=== PATIENT | male | born 1990 | race Caucasian/White ===

== ENCOUNTER 2016-10-09 06:29 | Inpatient (IN) | payer BC ==
--- NOTE | ~2016-10-09 | CN ---
Consultation Report [facility] [address] [place]. [address] NAME: YUE KEVIN : 88 STATUS : ADM IN PAT#: [id number] AGE: 25 ADM/REG DATE : 10/09/16 MR#: [id number] REPORT SERV DATE: 10/10/16 DICTATED BY: WOOD KENNEDY DATE: 10/09/16 REPORT STATUS : Draft TRANSCRIBED BY: MODL DATE: 10/09/16 PAIN MANAGEMENT CONSULTATION DATE OF CONSULTATION: HISTORY: A 25-year-old gentleman with history of kyphoscoliosis, was admitted by Dr. Gutierrez and underwent back surgery this a.m. and posterior fusion of T8-L2. He has a history of longstanding heroin use, but none in nine months. At the present, his postop orders are as follows: 1. KEYPUNCH OPERATOR pump 1.2 mg q.10 minutes lockout, total of 7.2 mg in one hours. Percocet 10 mg q.4 hours p.r.n. breakthrough pain. Methadone starting tomorrow morning, 110 mg of methadone to start on 10/10/2016. Morphine IV push q.2 hours for severe pain, not relieved by the Percocet and the methadone, and Flexeril 10 mg q.8 hours. ALLERGIES: TALWIN, NUBAIN, BUPRENEX, AND TO STADOL. FAMILY HISTORY: Blood pressure problems and heart disease. PAST MEDICAL HISTORY: Hernia repair, but the family does not remember which side. He had some wisdom teeth removed and appendectomy and tonsillectomy and adenoids. He has had considerable pain, but at the present time, he is resting on his left side. PHYSICAL EXAMINATION: LUNGS: Clear. HEART: Regular sinus rhythm. ABDOMEN: Soft. Good peristalsis. Did not try to turn him since he was resting so comfortably. IMPRESSION: Postop fusion of T8-L2, history of drug problems. I will continue the dictation on this same patient and for pain management, I spoke with Dr. Chapman, who will call Dr. Gutierrez this p.m. I recommend for 10/10/2016, the methadone 30 mg q.8 hours, to discontinue the KEYPUNCH OPERATOR pump, oxycodone 10 mg two q.4 hours p.r.n. breakthrough pain, Neurontin 300 mg every 8 hours for sedation of respiratory rate of equal to or less than 12 per minute or systolic blood pressure equal to or less than 90. Discontinue all sedative medications and pain medication. At present, we do not plan to follow him in-house, but to be determined after Dr. Chapman speaks with Dr. Gutierrez this evening. We will not write any orders at this particular time. CARMELINA/JANNETTE Wood Consultation Report [facility] [address] [place]. [address] NAME: YUE KEVIN : 88 STATUS : ADM IN PAT#: [id number] AGE: 25 ADM/REG DATE : 10/09/16 MR#: [id number] REPORT SERV DATE: 10/10/16 DICTATED BY: WOOD KENNEDY DATE: 10/09/16 REPORT STATUS : Draft TRANSCRIBED BY: JANNETTE DATE: 10/09/16 Peyton Kennedy / [id number] CC: Ean Gutierrez,
--- NOTE | ~2016-10-09 | OP ---
Record Of Operation [facility] [address] [place]. [address] NAME: YEU KEVIN : 88 STATUS : ADM IN PAT#: [id number] AGE: 25 ADM/REG DATE : 10/09/16 MR#: [id number] REPORT SERV DATE: 10/09/16 DICTATED BY: EAN IBARRA DATE: 10/09/16 REPORT STATUS : Draft TRANSCRIBED BY: MODL DATE: 10/09/16 DATE OF PROCEDURE: 10/09/2016 PREOPERATIVE DIAGNOSIS: Thoracolumbar kyphosis and scoliosis, intractable back pain, failed conservative treatment. POSTOPERATIVE DIAGNOSIS: Thoracolumbar kyphosis and scoliosis, intractable back pain, failed conservative treatment. PROCEDURE: T11 and T12 transverse osteotomies, T11 to L1 open laminectomy and bilateral foraminotomies. T7-L2 posterolateral fusion bilaterally. T7-L2 posterior segmental spinal instrumentation using Medtronic pedicle screws. Use of local morcellized autograft. Use of allograft bone matrix. Neuromonitoring. Intraoperative O-arm CT scan with computer navigation and correction of sagittal plane kyphotic deformity, preoperative was 85 degrees. SURGEON: Ean Ibarra DO. ANESTHESIA: General. ESTIMATED BLOOD LOSS: 500 mL. COMPLICATIONS: None. INDICATIONS: The patient is a 25-year-old with intractable pain and gait disturbance and kyphotic deformity due to thoracolumbar kyphosis, failed multiple attempts at conservative treatment, and after progressive deformity, he elected to proceed with surgery. PROCEDURE IN DETAIL: I identified the patient in the holding area. Consent was obtained. Went to the operating room. Underwent general anesthesia with endotracheal intubation. Prepped and draped in usual sterile fashion. Operative safety pause was performed, then we proceeded. A midline longitudinal incision was made from T7 down to L2, taken to the fascial layer. Paraspinous muscles subperiosteally elevated. Self-retaining retractors were placed. O-arm registration frame was placed on spinous process. O-arm was brought in for intraoperative CT scan. Computer registration materials were verified. Under computer guidance, pedicle screws from Medtronic were placed from T7-L2. O arm was brought back in to verify good placement of all pedicle screws. Rongeur was used to remove spinous processes and underlying lamina at T11 to L1. Complete facetectomies and removal of the pars interarticularis removed at T11 and T12 to allow for a transverse osteotomy at each of those levels. Rods were cut and contoured to the appropriate shape and gradually reduced down to the screws and gently correcting the sagittal plane kyphotic deformity. Additional correction was made by in situ bending of the rods once attached to the screws and compression of screws as well. Set screws were then final tightened. Final AP and lateral images were obtained. A high-speed decorticating taniya was used to decorticate the remaining bony surfaces. T7-L2 irrigation performed. Hemostasis achieved. Local morcellized autograft and allograft bone matrix were packed over the decorticated surfaces at T7-L2. Subfascial drain was placed. A gram of vancomycin powder sprinkled over the surgical wound. Record Of Operation [address] [address] NAME: YUE KEVIN : 88 STATUS : ADM IN [facility]#: [id number] AGE: 25 ADM/REG DATE : 10/09/16 MR#: [id number] REPORT SERV DATE: 10/09/16 DICTATED BY: EAN IBARRA DATE: 10/09/16 REPORT STATUS : Draft TRANSCRIBED BY: JANNETTE DATE: 10/09/16 Layered closure performed. Sterile dressings applied. The patient awoke and extubated, taken to recovery room in stable condition. FINDINGS: Thoracolumbar kyphosis. No sustained neuromonitoring alerts occurred. KAYLIN/JANNETTE Ean Ibarra DO / [id number] CC: Ean Ibarra DO
--- NOTE | ~2016-10-09 | DS ---
Discharge Summary [facility] [address] [place]. [address] NAME: YUE KEVIN : 88 STATUS : DIS IN PAT#: [id number] AGE: 25 ADM/REG DATE : 10/09/16 MR#: [id number] REPORT SERV DATE: 10/22/16 DICTATED BY: EAN GUTIERREZ DATE: 10/21/16 REPORT STATUS : Draft TRANSCRIBED BY: JANNETTE DATE: 10/21/16 Data Collection from hospitalization DISCHARGE DIAGNOSES: 1. Thoracolumbar kyphosis and scoliosis with intractable back pain-failed conservative treatment. 2. Hepatitis C. 3. Scoliosis. 4. Tobacco use. 5. Former heroin user. 6. Chronic pain. CONSULTATION: Dr. Wood Giron. PROCEDURES PERFORMED: T11 and T12 transverse osteotomies, T11-L1 open laminectomy and bilateral foraminotomies, T7-L2 posterolateral fusion bilaterally, T7-L2 posterior segmental spinal instrumentation using Medtronic pedicle screws, use of localized morcellized autograft, use of allograft bone matrix, neuromonitoring, intraoperative O-arm CT scan with computer navigation and correction of sagittal plane, kyphotic deformity-preoperative with 85 degrees, 10/09/2016. PATHOLOGY: Tissue from thoracic and lumbar spine-benign skeletal muscle and soft tissue and bone and cartilage. Medullary bone with normocellular bone marrow particles with trilineage hematopoiesis. No metastatic malignancy or lymphoid or plasma cell neoplasm. DISCHARGE MEDICATIONS: Valium 5 mg every eight hours as needed, methadone 110 mg daily, Roxicodone 5 mg every four hours as needed, Lyrica 50 mg twice a day, Phenergan 25 mg every four hours as needed. CONDITION AT DISCHARGE: Stable. DISPOSITION: The patient was discharged home on a regular diet with activities as instructed. He would follow up with me two weeks following discharge. HOSPITAL COURSE: This is a 25-year-old male, who had intractable back pain with kyphotic deformity centered over the thoracolumbar junction that had failed multiple attempts at conservative treatments and after progressive deformity, it was elected to proceed with surgical intervention. He was admitted to the hospital at this time for further evaluation and treatment. Upon admission, he was taken to the operating room, where he underwent the above-mentioned procedure. He tolerated this well and there were no complications. Postoperatively, he was seen by Dr. Wood Giron regarding pain management. The patient has a history of longstanding heroin use, but none in the past nine months. He was on a VICE PRESIDENT OF RECRUITING pump at this time. He was receiving Percocet for breakthrough pain. Methadone would begin the following morning. IV morphine push would be given every two hours for severe pain that was not relieved by the Percocet and methadone and Flexeril. Later in the day, Dr. Chapman recommended that methadone be continued and the [employer]IDENT [employer]ING be stopped. Oxycodone would be given Discharge Summary [facility] [address] [facility] [place]. [address] NAME: YUE KEVIN : 88 STATUS : DIS IN PAT#: [id number] AGE: 25 ADM/REG DATE : 10/09/16 MR#: [id number] REPORT SERV DATE: 10/22/16 DICTATED BY: EAN GUTIERREZ DATE: 10/21/16 REPORT STATUS : Draft TRANSCRIBED BY: JANNETTE DATE: 10/21/16 for breakthrough pain. Neurontin would also be provided. For over-sedation or decreased respiratory rate or systolic blood pressure less than 90, all sedating medications or pain medications would be stopped. On postop day #1, the Patino catheter was removed. He was evaluated by Physical Therapy. The patient's family was unhappy with the medication recommendation. The patient did have expected postop pain. The patient was sleeping and appeared comfortable at times. The patient's family was refusing to let the patient take his methadone. It was explained to the patient's family that there was danger in not following the recommendations, including and overdose, but they continued to refuse to follow recommendations. The patient declined therapy the day previously, but he had been up ambulating independently. The patient was wanting to go home. On 10/12/2016, the patient's pain was controlled. He did have some abdominal discomfort. The patient said this was normal for him. Discharge instructions were given. Due to his improved and stable condition, he was discharged home with the above-stated instructions. Information collected by: Shannon Norwood I submit the above information as my discharge summary. CLARITZA/JANNETTE Ean Gutierrez DO / [id number] CC: DO Wood [place] M.D.
--- NOTE | ~2016-10-09 | PREOPHP ---
PreOp History and Physical [facility] [address] [place]. [address] NAME: YUE KVEIN : 88 STATUS : ADM IN PAT#: [id number] AGE: 25 ADM/REG DATE : 10/09/16 MR#: [id number] REPORT SERV DATE: 10/09/16 DICTATED BY: EAN IBARRA DATE: 10/09/16 REPORT STATUS : Draft TRANSCRIBED BY: JANNETTE DATE: 10/09/16 CHIEF COMPLAINT: Back pain with thoracic kyphosis and scoliosis, failed conservative treatment. HISTORY OF PRESENT ILLNESS: The patient is a 25-year-old with intractable back pain with kyphotic deformity centered over the thoracolumbar junction, failed multiple attempts at conservative treatment, and after progressive deformity, elected to proceed with surgical intervention. REVIEW OF SYSTEMS: He denies chest pain, shortness of breath, and bowel or bladder changes. ALLERGIES: INCLUDE TALWIN, NUBAIN, BUPRENEX, AND STADOL. FAMILY HISTORY: Noncontributory. PAST MEDICAL HISTORY: Includes chronic pain, scoliosis, kyphosis, and hepatitis C. SOCIAL HISTORY: The patient admits to the use of tobacco, previous use of heroin, he is currently using methadone. MEDICATIONS: Home medications include methadone and tramadol. PHYSICAL EXAMINATION: GENERAL: The patient is healthy appearing and in no acute distress. PSYCHIATRIC: Alert and oriented x3. Normal mood and affect. Gait is somewhat antalgic. SPINE: The patient has a forward flexed posture. No focal tenderness. NEUROLOGIC: Strength in lower extremities remains intact with 5/5 motor strength diffusely. No focal deficits. HEART: Regular rate and rhythm. LUNGS: Clear to auscultation. ABDOMEN: Soft, nontender, and nondistended with good bowel sounds. BREAST/RECTAL: Both deferred. IMAGING: I have reviewed the MRI scan as well as the scoliosis x-rays, full length. The patient does have significant kyphotic deformity centered over approximately T12 with approximately 85 degrees of kyphosis. No spinal cord or nerve root compression on MRI. ASSESSMENT: Kyphotic deformity centered at the thoracolumbar junction, approximately 85 degrees, failed conservative treatment, and progressive causing difficulty with ambulating. PLAN: The patient presents today for surgical intervention. Consent was obtained. All questions were answered. He is ready to proceed with surgery. KAYLIN/JANNETTE PreOp History and Physical [facility] [address] [place] [address] NAME: YUE KEVIN : 88 STATUS : ADM IN PAT#: [id number] AGE: 25 ADM/REG DATE : 10/09/16 MR#: [id number] REPORT SERV DATE: 10/09/16 DICTATED BY: EAN IBARRA DATE: 10/09/16 REPORT STATUS : Draft TRANSCRIBED BY: JANNETTE DATE: 10/09/16 Ean Ibarra DO / [id number] CC: Ean Ibarra,
[~2016-10-09 06:29] MED LIST: METHADONE10 MG/5 ML PO; ULTRAM50 PO
[2016-10-09 13:32] LABS: BASOPHILS 0.1 %; BASOPHILS ABSOLUTE 0.01 10/3/uL (0.0-0.16); EOSINOPHILS 0.5 %; EOSINOPHILS ABSOLUTE 0.08 10/3/uL (0.0-0.53); HEMOGLOBIN 10.1 g/dL (13.6-17.8); IMMATURE GRANULOCYTES 1.3 %; IMMATURE GRANULOCYTES ABSOLUTE 0.19 10/3/uL (0.0-0.11); LYMPHOCYTES 6.7 %; MANUAL DIFF NO %; MEAN CORPUS HGB CONC 36.1 g/dL (32.0-36.0); MEAN CORPUSCULAR HEMOGLOB 31.8 pg (26.0-34.0); MEAN CORPUSCULAR VOLUME 88.1 fL (80-100); MEAN PLATELET VOLUME 9.4 fL (9.2-13.0); NEUTROPHILS 89.4 %; NEUTROPHILS ABSOLUTE 13.41 10/3/uL (2.02-8.40); PLATELET COUNT 298 10/3/uL (150-400); RBC DISTRIBUTION WIDTH 12.9 % (12.0-16.0); RED CELL COUNT 3.18 10/6/uL (4.7-6.1)
[2016-10-09 13:47] LABS: BUN (BLOOD UREA NITROGEN) 12 MG/DL (6-23); CALCIUM, SERUM 7.7 MG/DL (8.5-10.4); CHLORIDE, SERUM 107 MMOL/L (96-112); CO2 (CARBON DIOXIDE) 24 MMOL/L (24-34); CREATININE 0.95 MG/DL (0.70-1.30); GFR AFRICAN AMERICAN 128 ML/MIN (>=60); GFR NON AFRICAN AMERICAN 110 ML/MIN (>=60); GLUCOSE, SERUM 138 MG/DL (60-99); POTASSIUM, SERUM 3.4 MMOL/L (3.5-5.3); SODIUM, SERUM 141 MMOL/L (135-148)
[2016-10-10 10:12] LABS: MEAN CORPUS HGB CONC 34.9 g/dL (32.0-36.0); MEAN CORPUSCULAR HEMOGLOB 30.9 pg (26.0-34.0); MEAN CORPUSCULAR VOLUME 88.5 fL (80-100); MEAN PLATELET VOLUME 9.7 fL (9.2-13.0); PLATELET COUNT 342 10/3/uL (150-400); RBC DISTRIBUTION WIDTH 13.2 % (12.0-16.0); RED CELL COUNT 3.56 10/6/uL (4.7-6.1); WHITE BLOOD CELLS 16.2 10/3/uL (4.5-10.5)
[2016-10-10 10:19] LABS: HEMATOCRIT 31.5 % (40.0-51.0); MANUAL DIFF YES %
[2016-10-10 10:25] LABS: BUN (BLOOD UREA NITROGEN) 9 MG/DL (6-23); CALCIUM, SERUM 8.2 MG/DL (8.5-10.4); CHLORIDE, SERUM 106 MMOL/L (96-112); CO2 (CARBON DIOXIDE) 26 MMOL/L (24-34); CREATININE 0.71 MG/DL (0.70-1.30); GFR AFRICAN AMERICAN 150 ML/MIN (>=60); GFR NON AFRICAN AMERICAN 129 ML/MIN (>=60); GLUCOSE, SERUM 113 MG/DL (60-99); POTASSIUM, SERUM 3.8 MMOL/L (3.5-5.3); SODIUM, SERUM 142 MMOL/L (135-148)
[2016-10-10 10:36] LABS: BAND NEUTROPHILS 4 %; LYMPHOCYTES 10 %; LYMPHOCYTES ABSOLUTE (CALC) 1.62 10/3/uL (0.67-4.30); MONOCYTES 7 %; MONOCYTES ABSOLUTE (CALC) 1.13 10/3/uL (0.21-1.20); NEUTROPHILS ABSOLUTE (CALC) 13.45 10/3/uL (2.02-8.40); PLATELET ESTIMATE ADQ (ADEQUATE); SEGMENTED NEUTROPHIL (0) 79 %; TOTAL NUCLEATED CELLS 100
[2016-10-10 10:37] LABS: RBC MORPHOLOGY NORM (NORMAL)
[2016-10-11] MEDS ORDERED: V5 PO (11:06)
[2016-10-11] MEDS ORDERED: LYRICA50 PO (11:07)
[2016-10-11] MEDS ORDERED: OXYCOD PO (11:07)
[2016-10-11] MEDS ORDERED: PR25 PO (11:07)
== END 2016-10-12 12:53 | disposition home or self-care (01) | DRG 458 ==
LOC: SDC/OF 06:29 → 3SO 15:24
PROVIDERS: Orthopaedic Surgery
PROC: 4A11X4G Monitoring of Peripheral Nervous Electrical Activity, Intraoperative, External Approach (ICD-10-PCS; 2016-10-09)
PROC: 0RG7071 Fusion of 2 to 7 Thoracic Vertebral Joints with Autologous Tissue Substitute, Posterior Approach, Posterior Column, Open Approach (ICD-10-PCS; principal; 2016-10-09 08:00)
PROC: 0RGA071 Fusion of Thoracolumbar Vertebral Joint with Autologous Tissue Substitute, Posterior Approach, Posterior Column, Open Approach (ICD-10-PCS; 2016-10-09 08:00)
PROC: 0SG0071 Fusion of Lumbar Vertebral Joint with Autologous Tissue Substitute, Posterior Approach, Posterior Column, Open Approach (ICD-10-PCS; 2016-10-09 08:00)
DX: M41.85 Other forms of scoliosis, thoracolumbar region (principal); B18.2 Chronic viral hepatitis C; F17.210 Nicotine dependence, cigarettes, uncomplicated
CPT/HCPCS: 71010; 74000; 80048; 82962; 85025; 87641; 88304; 88311; 97116-GP; 97161-GP; A9270-GY; C1713; J0690; J1170; J1644; J2250; J2270; J2405; J2550; J2710; J3010; J3370